=== PATIENT | female | born 1980 | race Two or more races ===

== ENCOUNTER 2018-12-03 16:40 | Emergency (ER) | payer MEDICAID ==
[~2018-12-03] VITALS: Ht 157.5 cm; Wt 53.0 kg
[2018-12-03] MEDS ORDERED: SODIUM CHLORIDE 0.9% 1,000 ML IV ONE (17:47)
[2018-12-03] MEDS ORDERED: ACETAMINOPHEN 325MG TABLET PO ONE (18:15)
[2018-12-03 18:57] VITALS: BP 95/64
[2018-12-03] MEDS ORDERED: IBUPROFEN 600MG TABLET PO ONE (19:15)
== END 2018-12-03 19:27 | disposition home or self-care (01) ==
LOC: ER 16:40
DX: S09.8XXA Other specified injuries of head, initial encounter (principal); S40.011A Contusion of right shoulder, initial encounter; V49.49XA Driver injured in collision with other motor vehicles in traffic accident, initial encounter; Y93.89 Activity, other specified; Y92.89 Other specified places as the place of occurrence of the external cause; Y99.8 Other external cause status
CPT/HCPCS: 71045; 73030; 73130; 81025; 99283; J7030; Z7610